=== PATIENT | male | born 2000 | race African-American/Black ===

== ENCOUNTER 2023-07-19 05:02 | Emergency (ER) | payer OTHER ==
[~2023-07-19] VITALS: Ht 162.6 cm; Wt 72.6 kg
[2023-07-19 05:26] LABS: BASOPHILS 0.5 % (0-2); EOSINOPHILS 0.1 % (0-6); HEMOGLOBIN 14.5 g/dL (12.0-18.0); LYMPHOCYTES 26.8 % (24-44); MCH 30.3 (27-36); MCV 91.7 fl (81-99); MONOCYTES 7.4 % (0-12); NEUTROPHILS 65.2 % (39-80); PLATELET COUNT 306 K/uL (140-440); RDW 14.2 (10.5-15.0)
[2023-07-19 05:34] LABS: ALBUMIN 4.4 g/dL (3.4-5.0); ALBUMIN/GLOBULIN RATIO 1.38 (1.1-2.4); ANION GAP 16.4 (7-21); BILIRUBIN, TOTAL 0.3 ng/dL (0.2-1.0); BUN/CREATININE RATIO 17.39 (6.0-28.6); CALCIUM 8.5 mg/dL (8.5-10.1); CREATININE, SERUM 1.15 mg/dL (0.70-1.30); POTASSIUM 3.4 mmol/L (3.5-5.1); PROTEIN, TOTAL 7.6 g/dL (6.4-8.2)
[2023-07-19] MEDS ORDERED: NARCAN4 MG NAS (06:45)
[2023-07-19 09:41] VITALS: BP 109/60
== END 2023-07-19 09:42 | disposition home or self-care (01) ==
LOC: ED 05:02
PROVIDERS: Family Medicine
DX: T40.2X1A Poisoning by other opioids, accidental (unintentional), initial encounter (principal); R40.0 Somnolence
CPT/HCPCS: 36415; 80053; 80307; 85025; 96374; 99284-25; J2310; J7030

== ENCOUNTER 2024-03-02 14:55 | Emergency (ER) | payer OTHER ==
[~2024-03-02] VITALS: Ht 162.6 cm; Wt 61.3 kg
[~2024-03-02 14:55] MED LIST: NARCAN4 MG NAS
--- OUTSIDE RECORDS SUMMARY | 2024-03-02 15:01 | XMS ---
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 Events No recent Security Events currently on file CRITERIA MET - [facility] - 2 Visits in 30 Days CARE PROVIDERS RILEY CASTELLANOS Community Health Worker 12/11/2019-Current PHONE: [phone] -[facility] Dentist: Care Transition Manager [facility] PHONE: [phone] -Erin- Dentist: Care Transition Manager [facility] PHONE: [phone] -Teresa- Dentist: Care Transition Manager [facility] PHONE: [phone] Care Guidelines exist for the following facilities: [facility] Justo VISIT COUNT (12 MO.) 3 [facility] [address] [facility] [place] Jessica TOTAL 5 NOTE: Visits indicate total known visits. ED/UCC VISIT TRACKING (12 MO.) 03/02/2024 14:55 [facility] TYPE: Emergency COMPLAINT: - MEDICAL CLEARANCE 02/27/2024 15:19 [facility] [place] TYPE: Emergency DIAGNOSES: - Acute kidney failure, unspecified - Other psychoactive substance abuse, uncomplicated - ABDOMINAL PAIN 09/27/2023 23:21 [facility] [place] TYPE: Emergency DIAGNOSES: - Other specified health status - GENERAL 07/19/2023 05:02 [facility] [place] TYPE: Emergency COMPLAINT: - OD DIAGNOSES: - Poisoning by other opioids, accidental (unintentional), initial encounter - Somnolence 05/17/2023 13:01 [facility] [place] TYPE: Emergency DIAGNOSES: - Edema, unspecified - Local infection of the skin and subcutaneous tissue, unspecified - FInger Pain INPATIENT VISIT TRACKING (12 MO.) No inpatient visits to display in this time frame [email or web address]
[2024-03-02] MEDS ORDERED: CEPHALEXIN MONOHYDRATE 500 MG CAP PO ONE (15:45)
[2024-03-02] MEDS ORDERED: CEPHALEXIN500 M1 PO (15:49)
[2024-03-02 15:58] VITALS: BP 140/84
== END 2024-03-02 15:58 | disposition home or self-care (01) ==
LOC: ED 14:55
DX: L03.115 Cellulitis of right lower limb (principal)
CPT/HCPCS: 99282; A9270